=== PATIENT | female | born 1955 | race Caucasian/White ===

== ENCOUNTER 2018-05-25 14:49 | Emergency (ER) | payer MEDICARE, OTHER ==
[~2018-05-25] VITALS: Ht 165.1 cm; Wt 75.0 kg
[~2018-05-25 14:49] MED LIST: LOTRISONE CREAM15 GM TP; NO HOME MEDICATIONS
[2018-05-25 14:54] VITALS: TEMP 99.6
[2018-05-25 16:17] LABS: BASO % 0.6 % (0.0-2.0); EOS # 0.2 (0.0-0.7); EOS % 2.3 % (0-4.0); GRAN # 4.2 (1.4-6.5); GRAN % 57.5 % (42.2-75.2); HEMOGLOBIN 13.5 g/dl (12.5-16.0); LYMPH # 2.3 (1.2-3.4); MEAN CELL VOLUME 89 fl (80.0-100.0); MEAN CORPUSCULAR HEMOGLOBIN 29 pg (27.0-31.0); MEAN CORPUSCULAR HGB CONC 32 g/dl (33.0-37.0); MEAN PLATELET VOLUME 11.4 fl (7.4-10.4); MONO # 0.5 (0.1-0.6); MONO % 7.2 % (1.7-9.3); PLATELET COUNT 197 K/mm3 (130-400); RED BLOOD COUNT 4.73 M/mm3 (4.10-5.30)
[2018-05-25 16:32] VITALS: BP 140/87; PULSE 72
== END 2018-05-25 16:33 | disposition home or self-care (01) ==
LOC: COL.ER 14:49
PROVIDERS: Physician Assistant
DX: R04.0 Epistaxis (principal)

== ENCOUNTER 2018-09-25 07:42 | Emergency (ER) | payer MEDICARE ==
[~2018-09-25] VITALS: Ht 165.1 cm; Wt 89.0 kg
[2018-09-25 08:03] VITALS: TEMP 97.7
[2018-09-25 08:31] LABS: COLLECTION METHOD CLEAN CATCH
[2018-09-25 08:37] LABS: MUCOUS Present /lpf; PH 5 (5-8); SQUAMOUS EPITHELIAL 0-2 /hpf; URINE APPEARANCE Clear; URINE BACTERIA None Seen /hpf; URINE BILIRUBIN Negative (NEGATIVE); URINE BLOOD 1+ (NEGATIVE); URINE COLOR Yellow; URINE GLUCOSE Negative (NEGATIVE); URINE KETONE Negative (NEGATIVE); URINE LEUKOCYTE ESTERASE Negative (NEGATIVE); URINE NITRATE Negative (NEGATIVE); URINE PROTEIN(semi-quant) Negative (NEGATIVE); URINE RBC 0-2 /hpf; URINE UROBILINOGEN Negative (NEGATIVE)
[2018-09-25 08:50] LABS: BASO % 0.3 % (0.0-2.0); EOS # 0.2 (0.0-0.7); EOS % 1.9 % (0-4.0); GRAN # 5.4 (1.4-6.5); GRAN % 59.6 % (42.2-75.2); HEMATOCRIT 42.3 % (37.0-47.0); HEMOGLOBIN 13.9 g/dl (12.5-16.0); LYMPH # 2.6 (1.2-3.4); LYMPH % 28.4 % (20.0-51.0); MEAN CELL VOLUME 87 fl (80.0-100.0); MEAN CORPUSCULAR HEMOGLOBIN 29 pg (27.0-31.0); MEAN CORPUSCULAR HGB CONC 33 g/dl (33.0-37.0); MEAN PLATELET VOLUME 11.1 fl (7.4-10.4); MONO # 0.8 (0.1-0.6); MONO % 9.2 % (1.7-9.3); PLATELET COUNT 212 K/mm3 (130-400); RED BLOOD COUNT 4.86 M/mm3 (4.10-5.30); REDCELL DISTRIBUTION WIDTH-CV 13.9 % (11.5-14.5)
[2018-09-25 09:02] LABS: ALBUMIN 4.4 gm/dL (3.5-5.0); BILIRUBIN,TOTAL 0.5 mg/dL (0.0-1.0); CALCIUM 9.5 mg/dL (8.4-10.2); CREATININE, serum 0.72 (0.52-1.25); POTASSIUM 4.4 mmol/L (3.4-5.0); TOTAL PROTEIN 7.5 gm/dL (6.4-8.2)
[2018-09-25] MEDS ORDERED: VALTREX1 GM PO (10:27)
[2018-09-25] MEDS ORDERED: NORCO 325 MG-51 TAB PO (10:27)
[2018-09-25 11:20] VITALS: BP 147/74; PULSE 71
== END 2018-09-25 11:30 | disposition home or self-care (01) ==
LOC: COL.ER 07:42
PROVIDERS: Physician Assistant
DX: K80.20 Calculus of gallbladder without cholecystitis without obstruction (principal); B02.9 Zoster without complications; N85.2 Hypertrophy of uterus; Z98.890 Other specified postprocedural states
CPT/HCPCS: J1885; J2270; J2405; J7030; Q9967

== ENCOUNTER 2019-01-16 13:09 | Emergency (ER) | payer MEDICARE ==
[~2019-01-16] VITALS: Ht 165.1 cm; Wt 91.0 kg
[~2019-01-16 13:09] MED LIST changes: +NORCO 325 MG-51 TAB PO; +VALTREX1 GM PO
[2019-01-16 13:32] VITALS: BP 136/65; TEMP 98.7
[2019-01-16 15:29] VITALS: PULSE 74
== END 2019-01-16 15:29 | disposition home or self-care (01) ==
LOC: COL.ER 13:09
DX: H11.31 Conjunctival hemorrhage, right eye (principal)

== ENCOUNTER → 2019-01-28 | Outpatient (CLI) | payer MEDICARE | LOC: MC.RAD 09:06 | DX: Z12.31 Encounter for screening mammogram for malignant neoplasm of breast (principal); N64.89 Other specified disorders of breast ==

== ENCOUNTER → 2019-02-05 | Outpatient (CLI) | payer MEDICARE | LOC: MC.RAD 09:58 | DX: N64.89 Other specified disorders of breast (principal) | CPT/HCPCS: G0279 ==

== ENCOUNTER 2019-08-24 22:51 | Inpatient (IN) | payer MEDICARE ==
[~2019-08-24] VITALS: Ht 165.1 cm; Wt 88.0 kg
[2019-08-24 23:55] LABS: BASO % 0.2 % (0.0-2.0); GRAN # 10.4 (1.4-6.5); GRAN % 88.2 % (42.2-75.2); HEMATOCRIT 42.1 % (37.0-47.0); HEMOGLOBIN 13.6 g/dl (12.5-16.0); LYMPH # 0.7 (1.2-3.4); LYMPH % 5.7 % (20.0-51.0); MEAN CELL VOLUME 88 fl (80.0-100.0); MEAN CORPUSCULAR HEMOGLOBIN 29 pg (27.0-31.0); MEAN CORPUSCULAR HGB CONC 32 g/dl (33.0-37.0); MONO # 0.6 (0.1-0.6); MONO % 5.3 % (1.7-9.3); PLATELET COUNT 179 K/mm3 (130-400); RED BLOOD COUNT 4.77 M/mm3 (4.10-5.30)
[2019-08-25] VITALS (12 sets, daily range): BP systolic 112–135; BP diastolic 51–70; PULSE 76–98; TEMP 98–103
[2019-08-25 00:06] LABS: ALBUMIN 4.2 gm/dL (3.5-5.0); BILIRUBIN,TOTAL 1.5 mg/dL (0.0-1.0); CALCIUM 9.1 mg/dL (8.4-10.2); CREATININE, serum 0.83 (0.52-1.25); MAGNESIUM 2.1 mg/dL (1.6-2.3); POTASSIUM 4.1 mmol/L (3.4-5.0); TOTAL PROTEIN 7.5 gm/dL (6.4-8.2)
[2019-08-25 01:36] LABS: COLLECTION METHOD CLEAN CATCH
[2019-08-25 01:44] LABS: MUCOUS Present /lpf; PH 6 (5-8); SQUAMOUS EPITHELIAL 0-2 /hpf; URINE APPEARANCE Clear; URINE BACTERIA None Seen /hpf; URINE BILIRUBIN Negative (NEGATIVE); URINE BLOOD Negative (NEGATIVE); URINE COLOR Yellow; URINE GLUCOSE Negative (NEGATIVE); URINE KETONE Trace (NEGATIVE); URINE LEUKOCYTE ESTERASE Negative (NEGATIVE); URINE NITRATE Negative (NEGATIVE); URINE PROTEIN(semi-quant) Negative (NEGATIVE)
--- NOTE | 2019-08-25 03:56 | NUR ---
Pt admission assessment completed and charted, alert and oriented, roomair. Lung sound clear, hypoactive bowel sound, no open wounds over body, +1 swelling on rt lower extremity. I/V canula flushed without complications, LR running. Rt lower abdominal pain upon movement. Helped to settled down on bed, call light on reach. No further needs at this time.
--- NOTE | 2019-08-25 06:39 | NUR ---
Pt slept on and off through out the night. Pt had fever in the morning, called Dr. Tavarez and got Verbal order for tylenol 650mg. Checked her temperature after 30 minutes and it's 102.3. Provided cold compression and will continue monitoring her. Settled down on her bed, no further needs at this time.
--- NOTE | 2019-08-25 07:17 | NUR ---
Pt report given to ITALO Escobedo.
--- NOTE | 2019-08-25 07:51 | NUR ---
AT BEDSIDE. AOX4
--- NOTE | 2019-08-25 08:57 | NUR ---
PT PICKED UP BY SURGERY @ [id number]. PRN DILAUDID GIVEN. VOIDED. NEW IV TO R FA STARTED DUE TO LR INFUSING ON L AC AND SCHEDULED ZOSYN DOSE. REPORS SHARP PAIN TO RUQ ABD STINGING TO ACROSS ABD. NO OTHER COMPLAINTS. STANDBY ASSIST TO RR.
--- NOTE | 2019-08-25 11:20 | NUR ---
Patient up to room 347 by bed from OR. Drowsy but arouses to voice. Post op VSS. Post op fluids infusing per orders. Lap x 3 with edges well approximated. Denies pain or further needs at this time. Will continue to monitor.
--- NOTE | 2019-08-25 16:12 | NUR ---
SW met with the patient to discuss discharge plan. The patient lives in [place] with her daughter, Renae (ph#[phone]). She states that her ex-, Arthur Torres, also lives in [place] and is staying at her place right now while she is here. She reports independence with ADLs and has a rolaider. The patient's PCP is Dr. Srinath Grissom and she receives her medications at [facility]. She reports no difficulties obtaining her meds. The patient does not have advanced directives in EMR, but she reports that she does have them completed and that Matt Thorne is her DPOA-HC and that his office should have a copy of the documents. [place] contacted Audrey at Femi Thorne's office and requested a copy of the documents. The patient plans to return home with her daughter upon discharge. SW to continue to follow as needed.
--- NOTE | 2019-08-25 18:39 | NUR ---
Patient has done well this afternoon. Denies pain at this time. Up to recliner today. Denies pain at this time. Denies further needs at this time. Will report off to night warehouse manager.
[2019-08-26 05:32] VITALS: BP 110/54; PULSE 64; TEMP 98.1
--- NOTE | 2019-08-26 06:00 | NUR ---
Patient has been doing well during the night. She slept most the night. Minimal complaints of pain. No complaints of nausea. She has been getting up independently in the room. She is anxious about her antibiotics and her plan for discharge. She is worried it won't be today. She is passing flatus, no bowel movement yet. She wanted tylenol for pain this am, otherwise nothing given in the night. No other changes at this time. Call light within reach.
[2019-08-26 08:23] VITALS: BP 120/62; PULSE 73; TEMP 98.3
--- NOTE | 2019-08-26 10:45 | NUR ---
Patient alert and oriented, answers questions appropriately. See assessment. Abdomen soft, non tender, non distended. Bowel sounds active x4 quads. +Flatus. +Bowel movement. Lap sites x3 to abdomen with edges well approximated, no redness or drainage noted. Post op exercises reviewed with patient, verbalized understanding.
[2019-08-26 12:01] VITALS: BP 113/58; PULSE 72; TEMP 97.5
[2019-08-26 15:24] VITALS: BP 129/65; PULSE 67; TEMP 98.1
[2019-08-26 15:31] LABS: BASO % 0.1 % (0.0-2.0); EOS % 0.1 % (0-4.0); GRAN # 12.6 (1.4-6.5); GRAN % 86.2 % (42.2-75.2); HEMATOCRIT 37.2 % (37.0-47.0); HEMOGLOBIN 12.1 g/dl (12.5-16.0); LYMPH # 0.9 (1.2-3.4); LYMPH % 6.3 % (20.0-51.0); MEAN CELL VOLUME 88 fl (80.0-100.0); MEAN CORPUSCULAR HEMOGLOBIN 29 pg (27.0-31.0); MEAN CORPUSCULAR HGB CONC 33 g/dl (33.0-37.0); MEAN PLATELET VOLUME 11.6 fl (7.4-10.4); MONO # 0.9 (0.1-0.6); MONO % 6.1 % (1.7-9.3); PLATELET COUNT 194 K/mm3 (130-400); RED BLOOD COUNT 4.22 M/mm3 (4.10-5.30); REDCELL DISTRIBUTION WIDTH-CV 14.2 % (11.5-14.5)
--- NOTE | 2019-08-26 17:00 | NUR ---
Dr Tavarez here to see patient.
[2019-08-26 19:45] VITALS: BP 127/64; PULSE 64; TEMP 98.5
--- NOTE | 2019-08-26 20:20 | NUR ---
Pt currently sitting up in chair. Pt requested some Tylenol at this time. Pt was given 2 Tylenol at this time. Pt has her call light within reach.
[2019-08-26 23:53] VITALS: BP 146/79; PULSE 67; TEMP 98.1
--- NOTE | 2019-08-27 | NUR ---
Pt was awake in her room sitting up in the chair. Pt was concerned about the IV medications that she was getting. She stated that she has got so many bags. She said she was worried because she had a high blood pressure reading. Pt blood pressure was taken at this time and Pt blood pressure was 136/88. Pt felt better about the reading after this. Pt was informed that she only had one more antiobiotic that I would be hanging on this shift. Pt has her call light within reach. Pt has had times where she seems very confused.
[2019-08-27 04:00] VITALS: BP 146/73; PULSE 63; TEMP 98.2
--- NOTE | 2019-08-27 04:00 | NUR ---
Pt was sleeping in bed but when I opened the door to check on her she continued to state that she wants to go home today becuase she is tired of receiving the IV medications. Pt is lying in be and has her call light within reach.
--- NOTE | 2019-08-27 07:00 | NUR ---
At shift change patient was upset about several issues related to her care. Patient states she refuses to take any more IV antibiotics, but is willing to take oral. Attempted to educate patient that the antibiotics are ordered because her appendix had perferated prior to removal and her WBC was elevated yesterday. Patient is firm in her refusal of IV antibiotics. Patient also states that she will only wait until noon to be discharged, and is very unhappy that staff cannot tell her what time her surgeon will round today. Patient also states she is finished with her telemetry and took it off. Attempted to educate patient on function and importance of telemetry. Patient verbalized understanding and continues to refuse to wear it. Patient denies further needs at this time, call light within reach.
[2019-08-27 07:16] VITALS: BP 166/80; PULSE 67; TEMP 98.2
[2019-08-27 09:24] LABS: BASO % 0.2 % (0.0-2.0); GRAN # 7.7 (1.4-6.5); GRAN % 78.1 % (42.2-75.2); HEMATOCRIT 41.1 % (37.0-47.0); HEMOGLOBIN 13.3 g/dl (12.5-16.0); LYMPH # 1.8 (1.2-3.4); LYMPH % 18.4 % (20.0-51.0); MEAN CELL VOLUME 89 fl (80.0-100.0); MEAN CORPUSCULAR HEMOGLOBIN 29 pg (27.0-31.0); MEAN CORPUSCULAR HGB CONC 32 g/dl (33.0-37.0); MEAN PLATELET VOLUME 11.4 fl (7.4-10.4); MONO # 0.2 (0.1-0.6); MONO % 2.1 % (1.7-9.3); PLATELET COUNT 215 K/mm3 (130-400); RED BLOOD COUNT 4.63 M/mm3 (4.10-5.30); REDCELL DISTRIBUTION WIDTH-CV 14.3 % (11.5-14.5)
[2019-08-27] MEDS ORDERED: NORCO 325 MG-51 TAB PO (10:04)
[2019-08-27] MEDS ORDERED: AMOXICILLIN 8751 TAB PO (10:04)
[2019-08-27 11:33] VITALS: BP 127/64; PULSE 74; TEMP 98.1
--- NOTE | 2019-08-27 11:45 | NUR ---
Discharge teaching completed. Discussed follow up appointments, discharge instructions, bathing instructions, and possible post operative complications. INT removed from left and right AC, catheter intact, hemostasis achieved. Patient tolerated removal well. Patient will eat lunch tray that was just delivered before leaving. Patient instructed to call ride when she is ready and to call for help dressing if she needs it. Instructed patient to call and inform staff when ride arrives so she can be escorted out. Patient verbalized understanding.
--- NOTE | 2019-08-27 11:52 | NUR ---
First visit from the necktie stitcher. Patient prayed for the necktie stitcher. No other needs right now.
--- NOTE | 2019-08-27 13:00 | NUR ---
Patient walked past nurses' station, dressed and with her belongings. Staff informed patient that they needed to walk her out; patient protested that she didn't need an escort out. Informed patient that escort out was policy. Patient attempted to get staff to leave her several more times before arriving to ED entrance where patient met friend and refused to allow staff to walk her out the door.
== END 2019-08-27 13:00 | disposition home or self-care (01) | DRG 339 ==
LOC: COL.ER 22:51 → MEDICAL 08-25 01:42 → SURG 08-25 10:55
PROVIDERS: Emergency Medicine; ADMIT Surgery
PROC: 0DTJ4ZZ Resection of Appendix, Percutaneous Endoscopic Approach (ICD-10-PCS; 2019-08-25)
PROC: 0DTJ4ZZ Resection of Appendix, Percutaneous Endoscopic Approach (ICD-10-PCS; principal; 2019-08-25 09:00)
DX: K35.33 Acute appendicitis with perforation, localized peritonitis, and gangrene, with abscess (principal); C18.1 Malignant neoplasm of appendix
CPT/HCPCS: A9284; J1100; J1170; J2405; J2543; J2704; J3010; J7030; J7120; Q9967